=== PATIENT | male | born 1965 | race Hispanic/Latino ===

== ENCOUNTER 2019-10-19 23:10 | Emergency (ER) | payer SELFPAY ==
[~2019-10-19 23:10] MED LIST: niCARdipine 50 MG in SODIUM CHLORIDE 0.9% 250ML 230 ML IV ONE
--- NOTE | 2019-10-19 23:19 | Emergency Department Report ---
ED General Adult HPI - General Stated complaint: POSS STROKE Time Seen by Provider: 10/19/19 23:19 - History of Present Illness Initial comments: 54-year-old male with a history of hypertension as well as prior CVA presents after being found down by family with family stating that patient was making gurgling noises. Patient states that at 8 PM patient was ambulatory and despite his prior history of a CVA had had no residual neurologic deficits. Family states they return and the patient was found down on the ground and thus they called EMS. Upon EMS arrival patient was noted not to be moving his right upper or right lower extremity. Patient was nonverbal. Patient did spontaneously have his eyes open. - Related Data Home Medications Medication Instructions Recorded Confirmed Last Taken Doxazosin [Cardura] 2 mg PO QDAY 10/20/19 10/20/19 1 Day Ago ~10/19/19 Metoprolol Tartrate 25 mg PO BID 10/20/19 10/20/19 1 Day Ago ~10/19/19 hydrALAZINE [Apresoline] 25 mg PO DAILY 10/20/19 10/20/19 1 Day Ago ~10/19/19 Allergies Allergy/AdvReac Type Severity Reaction Status Date / Time Unable to Assess Allergy Unverified 10/19/19 23:14 ED Review of Systems ROS: Stated complaint: POSS STROKE Other details as noted in HPI Comment: Unobtainable due to pts medical conditions ED Past Medical Hx - Medications Home Medications: Home Medications Medication Instructions Recorded Confirmed Last Taken Type Doxazosin [Cardura] 2 mg PO QDAY 10/20/19 10/20/19 1 Day Ago History ~10/19/19 Metoprolol Tartrate 25 mg PO BID 10/20/19 10/20/19 1 Day Ago History ~10/19/19 hydrALAZINE [Apresoline] 25 mg PO DAILY 10/20/19 10/20/19 1 Day Ago History ~10/19/19 ED Physical Exam - General General appearance: lethargic - Head Head exam: Present: atraumatic, normocephalic, other (No evidence of scalp laceration or scalp hematoma) - Eye Eye exam: Present: normal appearance - ENT ENT exam: Present: mucous membranes dry - Neck Neck exam: Present: normal inspection. Absent: lymphadenopathy - Respiratory Respiratory exam: Present: normal lung sounds bilaterally. Absent: respiratory distress - Cardiovascular Cardiovascular Exam: Present: normal rhythm, bradycardia. Absent: systolic murmur, diastolic murmur, rubs, gallop - GI/Abdominal GI/Abdominal exam: Present: soft, normal bowel sounds. Absent: tenderness - Rectal Rectal exam: Present: deferred - Extremities Exam Extremities exam: Present: normal inspection - Back Exam Back exam: Present: normal inspection - Neurological Exam Neurological exam: Present: other (Patient is not oriented to person place or time. Patient has strength that is 5 out of 5 in the left upper and left lower extremity) - Expanded Neurological Exam Expanded Neurological exam: Present: total aphasia Patient oriented to: Absent: person, place, time Cranial nerves: Gag Reflex: Normal Motor strength exam: RUE: 2/1, LUE: 5, RLE: 2/1, LLE: 5 Best Eye Response (Pollock): (4) open spontaneously Best Motor Response (Keshawn): (5) localizes to pain Best Verbal Response (Pollock): (1) no verbal response Pollock Total: 10 - Psychiatric Psychiatric exam: Absent: normal mood - Skin Skin exam: Present: warm, dry, intact, normal color. Absent: rash ED Course Vital Signs 10/19/19 10/19/19 10/20/19 23:20 23:51 00:03 Pulse Rate 78 90 86 Respiratory 10 L 27 H 20 Rate Blood Pressure 187/98 Blood Pressure 263/167 263/157 [Left] O2 Sat by Pulse 90 100 Oximetry 10/20/19 10/20/19 10/20/19 00:05 00:20 00:35 Pulse Rate 59 L 87 87 Respiratory 20 20 19 Rate Blood Pressure Blood Pressure 187/89 203/89 [Left] O2 Sat by Pulse 97 97 100 Oximetry - Intubation Time Out Performed: Yes Sedative: Etomidate Mg Given: 20 Paralytic: Succinylcholine Mg Given: 100 Laryngoscope: Lore Size: 4 ET Tube Size: 8 Other Airway Intervention: glideoscope Tube Placement Confirmation: visualized tube passing t, confirmation by capnometr Intubation Complications: difficult intubation ED Medical Decision Making - Lab Data Result diagrams: 10/19/19 23:31 10/19/19 23:31 - EKG Data EKG shows normal: sinus rhythm Rate: normal - EKG Data Interpretation: LVH - Medical Decision Making Patient immediately proceeded to CT when presented to the ER. Patient had a CT which showed the presence of a basal ganglia hemorrhage with intraventricular extension and shift. Patient was then seen by tele-neurologist and nicardipine was ordered in addition to Keppra for seizure prophylaxis. Patient was intubated for airway protection. Patient case was discussed with neurosurgery and neuro manager hotel at [facility] accepted patient for continued management and treatment. Patient systolic BP improved to 140 with the intervention of Nicardipine. - Differential Diagnosis Intracranial bleed; electrode abnormality; anemia Critical Care Time: Yes Critical care time in (mins) excluding proc time.: 58 Critical care attestation.: If time is entered above; I have spent that time in minutes in the direct care of this critically ill patient, excluding procedure time. This time includes frequent reassessments, physician consultation, and direct bedside care. ED Disposition Clinical Impression: Intracranial hemorrhage, Hypokalemia, Renal disease, Hypertensive emergency Disposition: DC/TX-70 ANOTHER TYPE HLTHCARE Is pt being admited?: No Condition: Critical Instructions: Hypertension (ED) Referrals: DALIA GARCIA MD [Primary Care Provider] - 3-5 Days Time of Disposition: 01:23 Print Language: [place]
[2019-10-19] MEDS ORDERED: levETIRAcetam 1000 MG/NS 0.75% 1,000 MG/100 ML BAG IV ONE (23:29)
--- NOTE | 2019-10-19 23:30 | Consultation ---
History of Present Illness History of present illness: [facility] Date of Service: 10/19/2019 23:15:48 Impression: ICH Comments: Patient with CT evidence of left BG ICH with IVH. Likely hypertensive in etiology. Other causes will need investigated. Metrics: Last Known Well: 10/19/2019 20:00:00 [facility] Notification Time: 10/19/2019 23:15:22 Arrival Time: 10/19/2019 23:15:00 Stamp Time: 10/19/2019 23:15:48 Time First Login Attempt: 10/19/2019 23:18:00 Video Start Time: 10/19/2019 23:18:00 Symptoms: right-sided weakness NIHSS Start Assessment Time: 10/19/2019 23:21:00 Patient is not a candidate for tPA. Patient was not deemed candidate for tPA thrombolytics because of Current or Previous ICH. Video End Time: 10/19/2019 23:27:00 CT head was reviewed and results were: left BG acute hemorrhage with IVH Clinical Presentation is not Suggestive of Large Vessel Occlusive Disease, Patient is not a Candidate for Thrombectomy Our recommendations are outlined below. Recommendations: Activate ICH Protocol Admission/Order Set ICU Neuro Checks NPO DVT Prophylaxis IV Fluids, Normal Saline Head of Bed at 30 Degrees Euglycemia and Avoid Hyperthermia (PRN Acetaminophen) Hold AP/AC Intubate for airway protection Monitor coags/plts and correct PRN BP per ICH protocol (if none specified, SBP < 140) Neurosurgery consult STAT Recommended Scan: MRI Head with and Without Contrast MRA Head and Neck Without Contrast When Available - Stroke Protocol Echocardiogram - Transthoracic Echocardiogram Therapies: Physical Therapy, Occupational Therapy, Speech Therapy Assessment When Applicable Dysphaghia Screen: NPO Until Swallow Evaluation DVT prophylaxis: SCDs, Pneumatic Compression Disposition: Follow up with Teleneurology Follow up Sign Out: Discussed with Emergency Department Provider History of Present Illness: Patient is a 54 year old Male. Patient was brought by EMS for symptoms of right-sided weakness Pt with a history of HTN and reported prior stroke with residual mild left-sided weakness. Last seen normal by family at 1999. He was later found on the floor gurgling and with right-sided weakness. CT head was reviewed. Examination: 1A: Level of Consciousness - Requires repeated stimulation to arouse + 2 1B: Ask Month and Age - Aphasic + 2 1C: Blink Eyes & Squeeze Hands - Performs 0 Tasks + 2 2: Test Horizontal Extraocular Movements - Normal + 0 3: Test Visual Pablo - No Visual Loss + 0 4: Test Facial Palsy (Use Grimace if Obtunded) - Normal symmetry + 0 5A: Test Left Arm Motor Drift - Drift, hits bed + 2 5B: Test Right Arm Motor Drift - No Movement + 4 6A: Test Left Leg Motor Drift - Drift, hits bed + 2 6B: Test Right Leg Motor Drift - No Movement + 4 7: Test Limb Ataxia (FNF/Heel-Hernández) - No Ataxia + 0 8: Test Sensation - Complete Loss: Cannot Sense Being Touched At All + 2 9: Test Language/Aphasia - Mute/Global Aphasia: No Usable Speech/Auditory Comprehension + 3 10: Test Dysarthria - Mute/Anarthric + 2 11: Test Extinction/Inattention - No abnormality + 0 NIHSS Score: 25 Patient was informed the Neurology Consult would happen via TeleHealth consult by way of interactive audio and video telecommunications and consented to receiving care in this manner. Due to the immediate potential for life-threatening deterioration due to underlying acute neurologic illness, I spent 35 minutes providing critical care. This time includes time for face to face visit via telemedicine, review of medical records, imaging studies and discussion of findings with providers, the patient and/or family. Dr Luis Guerrero [facility] Case [id number] Medications and Allergies Allergies Allergy/AdvReac Type Severity Reaction Status Date / Time Unable to Assess Allergy Unverified 10/19/19 23:14 Active Meds: Active Medications Nicardipine HCl 50 mg/ Sodium (Chloride) 250 mls @ 0 mls/hr IV DIRECT ONE Stop: 10/19/19 23:01
--- NOTE | 2019-10-19 23:38 | Cat Scan Report ---
CT HEAD WITHOUT CONTRAST INDICATION: MAIN: STROKE ALERT. AMS. [phone]. TECHNIQUE: All CT scans at this location are performed using CT dose reduction for ALARA by means of automated e xposure control. COMPARISON: None available. FINDINGS: There is a large intraparenchymal hemorrhage in the left basal ganglia/insular region which measures approximately 4.2 cm. Intraventricular extension is seen into the lateral, third, and fourth ventricl es. There is approximately 11 mm of [id number] subfalcine midline shift. Lateral ventricles are mi ldly dilated and may be trapped. Basilar cisterns remain patent at this time. There is diffuse vasoge sussy edema on the left. The periventricular white matter hypodensities are noted bilaterally. ORBITS: Normal as visualized. SOFT TISSUES OF HEAD: Normal. CALVARIUM: Normal. VISUALIZED PARANASAL SINUSES AND MASTOID AIR CELLS: Clear. ADDITIONAL FINDINGS: None. IMPRESSION: 1. 4.2 cm left basal ganglia acute parenchymal hematoma may be hypertensive. There is intraventricula r extension and mass effect as above. CRITICAL RESULT: Time of Discovery: 10:29 PM Time of Communication: 10:31 PM Licensed Practitioner Receiving Report: Dr. Garcia Read Back Performed: Yes. Signer Name: Ramin Putnam MD Signed: 10/19/2019 11:34 PM Workstation Name: [id number]
[2019-10-19] MEDS ORDERED: niCARdipine 50 MG in SODIUM CHLORIDE 0.9% 250ML 230 ML IV SCH (23:45)
[2019-10-19 23:52] LABS: Basophils # (Auto) 0.2 K/mm3 (0.0-0.1); Basophils % (Auto) 1.6 % (0.0-1.8); Eosinophils # (Auto) 0.4 K/mm3 (0.0-0.4); Eosinophils % (Auto) 3.7 % (0.0-4.3); Hemoglobin 11.2 gm/dl (11.8-15.2); Lymphocytes # (Auto) 1.9 K/mm3 (1.2-5.4); Lymphocytes % (Auto) 16.8 % (13.4-35.0); Mean Corpuscular HGB Conc 35 % (32-34); Mean Corpuscular Volume 88 fl (84-94); Monocytes # (Auto) 0.9 K/mm3 (0.0-0.8); Monocytes % (Auto) 7.7 % (0.0-7.3); Platelet Count 165 K/mm3 (140-440); Red Blood Count 3.66 M/mm3 (3.65-5.03); Red Cell Distribution Width 15.3 % (13.2-15.2)
[2019-10-20 00:04] LABS: Calcium 9.2 mg/dL (8.4-10.2)
[2019-10-20 00:09] LABS: INR 1.06 (0.87-1.13); Partial Thromboplastin Time 32.4 Sec. (24.2-36.6)
[2019-10-20] MEDS ORDERED: LIP THERAPY VASELINE TP PRN (00:09)
[2019-10-20] MEDS ORDERED: MINERAL OIL/PETROLATUM, WHITE OPHTH OINT 3.5 GM OU PRN (00:09)
[2019-10-20] MEDS ORDERED: MIDAZOLAM 2 MG/2 ML INJ IV PRN (00:13)
--- NOTE | 2019-10-20 00:20 | XRay Report ---
CHEST 1 VIEW INDICATION: post intubation. COMPARISON: None. FINDINGS: Support devices: Endotracheal tube is in satisfactory position as is nasogastric tube. Heart: Normal. Lungs/Pleura: Mild interstitial opacities may be artifactual related to low lung volumes. No signific ant effusion, no pneumothorax. IMPRESSION: 1. Tubes in satisfactory position. Signer Name: Ramin Putnam MD Signed: 10/20/2019 12:15 AM Workstation Name: [id number]
[2019-10-20] MEDS ORDERED: MIDAZOLAM 100 MG in SODIUM CHLORIDE 0.9% 80 ML IV SCH (01:00)
[2019-10-20] MEDS ORDERED: POTASSIUM CHLORIDE 10 MEQ 10 MEQ/100 ML BAG IV ONE ×2 (01:19→01:21)
[2019-10-20 01:27] VITALS: BP 144/74
[2019-10-20 01:41] LABS: Chol/HDL Ratio 4.57 %
== END 2019-10-20 02:05 | disposition other institution (70) ==
LOC: ED 23:10
DX: I62.9 Nontraumatic intracranial hemorrhage, unspecified (principal); E87.6 Hypokalemia; I16.1 Hypertensive emergency
CPT/HCPCS: 31500; 36415; 70450; 71045; 80048; 80061; 84484; 85025; 85610; 85670; 85730; 87070; 87205; 93005; 93010; 96365; 96367; 96368; 96375; 99291; J1953; J2250; J3480; J7050; 94002